=== PATIENT | male | born 1985 | race Caucasian/White ===

== ENCOUNTER 2022-07-05 12:19 | Emergency (ER) | payer SELFPAY ==
[~2022-07-05] VITALS: Ht 175.2 cm; Wt 72.6 kg
[2022-07-05] MEDS ORDERED: PREPARATION H26 GM T (16:06)
[2022-07-05] MEDS ORDERED: MIRALAX POWDER17 G1 PO (16:06)
== END 2022-07-05 16:14 | disposition home or self-care (01) ==
LOC: ED 12:19
DX: K59.00 Constipation, unspecified (principal); K64.9 Unspecified hemorrhoids